=== PATIENT | female | born 1965 | race Two or more races ===

== ENCOUNTER → 2022-08-23 | Outpatient (CLI) | payer MEDICAID ==
[2022-08-23 15:09] LABS: Urine Bacteria NONE SEEN /hpf (None Seen); Urine Blood Negative /uL (Negative); Urine Mucus FEW (None Seen); Urine Specific Gravity 1.024 (1.001-1.035); Urine WBC 3 /hpf (0 - 5)
== END | disposition home or self-care (01) ==
LOC: LAB 14:44
PROVIDERS: ATTEND Urology
DX: N39.0 Urinary tract infection, site not specified (principal)
CPT/HCPCS: 81001; 87086

== ENCOUNTER 2023-10-16 08:07 | Day surgery (SDC) | payer MEDICAID ==
[2023-10-12 14:03] LABS: Basophils # (auto) 0 10 ^3/uL (0-0.2); Basophils % (auto) 0.8 % (0.0-2.0); Eosinophils # (auto) 0.1 10 ^3/uL (0-0.8); Eosinophils % (auto) 1.8 % (0.0-7.0); Hematocrit 38.6 % (36.0-46.0); Hemoglobin 13.3 g/dL (12.2-16.2); Lymphocytes % (auto) 35.8 % (10.0-50.0); Mean Corpuscular Hemoglobin 31.9 pg (28.0-32.0); Mean Corpuscular Hgb Conc. 34.4 g/dL (32.0-36.0); Mean Corpuscular Volume 92.7 fL (80.0-100.0); Monocytes # (auto) 0.4 10 ^3/uL (0-1.3); Monocytes % (auto) 7.4 % (0.0-12.0); Neutrophils % (auto) 54.2 % (37.0-80.0); Red Blood Cells 4.16 10^6/uL (4.0-5.20); Red Cell Distribution Width 13.2 % (11.8-14.3); White Blood Cell 5.5 10^3/uL (4.4-10.8)
[2023-10-12 14:06] LABS: Urine Amorphous Crystal FEW /hpf (None Seen); Urine Bacteria NONE SEEN /hpf (None Seen); Urine Blood Negative /uL (Negative); Urine Clarity HAZY (Clear); Urine Color Yellow (Yellow); Urine Protein, UAD TRACE (Negative); Urine Specific Gravity 1.018 (1.001-1.035); Urine Urobilinogen Normal (Negative); Urine WBC 7 /hpf (0 - 5)
[2023-10-12 14:36] LABS: INR 1.05 (0.9-1.15)
[2023-10-12 14:46] LABS: Alanine Aminotransferase 20 U/L (7-40); Albumin 4.4 g/dL (3.2-4.8); Alkaline Phosphatase 102 U/L (46-116); Anion Gap 6 (5-15); Aspartate Aminotransferase 12 U/L (13-40); BUN/Creatinine Ratio 14.5 (10.0-20.0); Bilirubin, Total 0.5 mg/dL (0.2-1.0); Blood Urea Nitrogen 12 mg/dL (9-23); Calcium 9.5 mg/dL (8.5-10.1); Carbon Dioxide 26 mmol/L (20-30); Chloride 111 mmol/L (98-107); Glucose 99 mg/dL (74-106); Potassium 3.8 mmol/L (3.5-5.1); Sodium 143 mmol/L (136-145)
[2023-10-12 14:47] LABS: Total Protein 6.7 g/dL (5.7-8.2)
[~2023-10-16] VITALS: Ht 160 cm; Wt 64.9 kg
[2023-10-16] MEDS ORDERED: ONDANSETRON HCL 4 MG/2 ML VIAL IV ONE ×2 (08:08→11:00)
[2023-10-16] MEDS ORDERED: MEPERIDINE HCL (50 MG/ML) 1 ML VIAL ONE (10:33)
[2023-10-16] MEDS ORDERED: fentaNYL CITRATE 100 MCG/2 ML VL ONE (10:33)
[2023-10-16] MEDS ORDERED: MIDAZOLAM HCL 2MG/2ML 2ml VIAL (1mg/ml) ONE (10:33)
[2023-10-16] MEDS ORDERED: CIPROFLOXACIN 400MG/200ML 200 ML IV ONE (10:35)
[2023-10-16] MEDS ORDERED: ceFAZolin 1GM VL ONE (10:42)
[2023-10-16] MEDS ORDERED: MORPHINE SULFATE 4 MG/ML SYR/VIAL IV PRN (11:00)
[2023-10-16] MEDS ORDERED: KETOROLAC TROMETH 30 MG/ML 1ML VIAL IV ONE (11:00)
[2023-10-16] MEDS ORDERED: LABETALOL HCL 5 MG/ML 4ML SYRINGE IV PRN (11:00)
[2023-10-16] MEDS ORDERED: MIDAZOLAM HCL 2MG/2ML 2ml VIAL (1mg/ml) IV PRN (11:00)
[2023-10-16] MEDS ORDERED: ePHEDrine SULFATE 50 MG/ML AMP IV PRN (11:00)
[2023-10-16] MEDS ORDERED: HYDROmorphone HCL 2 MG/ML VL/or syr IV PRN (11:00)
[2023-10-16] MEDS ORDERED: CONJ ESTROGENS 0.625MG/GM VAG CRM 30GM PV ONE (11:09)
[2023-10-16] MEDS ORDERED: DexAMETHasone SOD PHOS 10MG/1ML VIAL INJ ONE (11:16)
[2023-10-16] MEDS ORDERED: PROPOFOL 10 MG/ML 20 ML IV ONE (11:16)
[2023-10-16] MEDS: LIDOCAINE W/ EPINEPHRINE 1% 20ML VIAL ONE (11:45)
[2023-10-16 12:06] VITALS: TEMP 98.1
[2023-10-16 13:00] VITALS: BP 113/67; PULSE 77; RESP 18; O2SAT 99
== END 2023-10-16 13:15 | disposition home or self-care (01) ==
LOC: SUR 08:07
PROVIDERS: ATTEND Urology
DX: N39.3 Stress incontinence (female) (male) (principal); N81.10 Cystocele, unspecified; M19.90 Unspecified osteoarthritis, unspecified site; Z79.899 Other long term (current) drug therapy; Z98.890 Other specified postprocedural states
CPT/HCPCS: 36415; 57240; 57282; 57288; 80053; 81001; 85025; 85610; 85730; 87086; 88305; C1771; C2631; J0690; J0744; J1100; J2175; J2250; J2704; J3010; J2405